=== PATIENT | female | born 1970 | race Caucasian/White ===

== ENCOUNTER 2017-11-24 21:47 | Emergency (ER) | payer OTHER ==
--- NOTE | 2017-11-24 22:19 | EDM.PDOC ---
ED HPI GENERAL MEDICAL PROBLEM - General Chief Complaint: Bite:Animal, Insect Stated Complaint: LEFT HAND STUNG BY BEE SWOLLEN NOT GETTING BETTER Time Seen by Provider: 11/24/17 21:51 Source of Information: Reports: Patient History Limitations: Reports: No Limitations - History of Present Illness INITIAL COMMENTS - FREE TEXT/NARRATIVE: This is a 47-year-old female. The patient got stung by a bee or a wasp she is not certain around 12 noon today. She has taken some Benadryl she has used ice she's taken some ibuprofen and it continues to swell mildly over her dorsal ring finger. She is not wearing any rings. Because of the continued soreness in her finger and the swelling she comes to the ER for evaluation. She denies any other acute symptoms. She denies any difficulty in breathing denies any difficulty in swallowing and no swelling in her mouth. I explained to the patient that the venom from bees and wasps take about 72 hours for the body to digest and during that time she is going to have more swelling and maybe some more redness but the ice will help the most that Benadryl might make a difference as well as the ibuprofen. I encouraged her to not use that hand a lot because it would encourage swelling as well and continue to ice it down. I also explained that if there is any red streaks going up her forearm she needs to be seen because that means that it is getting infected. left ring finger Pain Score (Numeric/FACES): 5 - Related Data Allergies Allergy/AdvReac Type Severity Reaction Status Date / Time No Known Allergies Allergy Verified 11/24/17 21:55 Home Meds: Home Meds Cholecalciferol (Vitamin D3) [Vitamin D3] 1,000 unit PO DAILY 11/24/17 [History] FLUoxetine HCl [Fluoxetine] 20 mg PO DAILY 11/24/17 [History] Lisinopril 20 mg PO DAILY 11/24/17 [History] Past Medical History - Past Health History Medical/Surgical History: Denies Medical/Surgical History Cardiovascular History: Reports: Hypertension Psychiatric History: Reports: Depression - Past Surgical History HEENT Surgical History: Reports: Tonsillectomy Social & Family History - Family History Family Medical History: Noncontributory - Tobacco Use Smoking Status *Q: Never Smoker - Caffeine Use Caffeine Use: Reports: Coffee, Soda - Alcohol Use Date of Last Drink: 11/24/17 - Recreational Drug Use Recreational Drug Use: No ED ROS GENERAL - Review of Systems Review Of Systems: See Below Constitutional: Denies: Fever, Chills HEENT: Reports: No Symptoms Respiratory: Reports: No Symptoms Cardiovascular: Reports: No Symptoms Endocrine: Reports: No Symptoms GI/Abdominal: Reports: No Symptoms : Reports: No Symptoms Musculoskeletal: Reports: Other (As per history of present illness) Skin: Reports: Other (As per history of present illness) Neurological: Reports: No Symptoms Psychiatric: Reports: No Symptoms Hematologic/Lymphatic: Reports: No Symptoms ED EXAM, ANIMAL BITE - Physical Exam Exam: See Below Exam Limited By: No Limitations General Appearance: Alert, WD/WN, No Apparent Distress Eye Exam: Bilateral Eye: Normal Inspection Ears: Normal External Exam Nose: Normal Inspection Throat/Mouth: Normal Inspection, Normal Lips, Normal Voice, No Airway Compromise Head: Normocephalic Neck: Supple Respiratory/Chest: No Respiratory Distress Back Exam: Full Range of Motion Extremities: Other (The left ring finger over the proximal phalanx appears to be where she was stung, there is some mild swelling of that area and slightly distally, there is minimal erythema over the proximal dorsal phalanx and none going into the hand, she has good range of motion actually of that ring finger though with little stiff due to the swelling, there is no evidence of infection at this time.) Neurological: Alert, Oriented Psychiatric: Normal Affect, Normal Mood Skin Exam: Normal Color, Warm/Dry Course - Vital Signs Last Recorded V/S: Last Vital Signs Temp 98 F 11/24/17 21:51 Pulse 74 11/24/17 21:51 Resp 18 11/24/17 21:51 BP 126/65 11/24/17 21:51 Pulse Ox 95 11/24/17 21:51 Departure - Departure Time of Disposition: 22:18 Disposition: Home, Self-Care 01 Condition: Good Clinical Impression: Localized superficial swelling of skin Bee sting reaction Qualifiers: Encounter type: initial encounter Injury intent: accidental or unintentional Qualified Code(s): T63.441A - Toxic effect of venom of bees, accidental ( unintentional), initial encounter - Discharge Information Referrals: PCP,None [Primary Care Provider] -
== END 2017-11-24 22:25 | disposition home or self-care (01) ==
LOC: JD.ED 21:47
DX: T63.441A Toxic effect of venom of bees, accidental (unintentional), initial encounter (principal); M79.89 Other specified soft tissue disorders; I10 Essential (primary) hypertension
CPT/HCPCS: 99283